=== PATIENT | female | born 1965 | race Caucasian/White ===

== ENCOUNTER 2017-01-29 09:37 | Emergency (ER) | payer OTHER ==
[~2017-01-29] VITALS: Ht 160 cm; Wt 109.1 kg
[~2017-01-29 09:37] MED LIST: ATOXIMETIN-B1 CAP PO; BACTRIM DS 8001 TAB PO; CELEBREX 200MG200 MG PO; CYCLOBENZAPRINE5 MG PO; EPA/GLA1 SGL PO; FOLIC ACID0.4 MG PO; GABAPENTIN PO; HUMALOG100 U/ML SC; INSULIN; INSULIN PUMP; LANTUS100 U/ML; LANTUS100 U/ML SC; LEVOTHYROXINE PO; LEVOXYL0.1 MG PO; LISINOPRIL1 POW; LISINOPRIL10 MG PO; LORTAB 5/500 501 TAB PO; MAREPA1200 MG PO; METRONIDAZOLE500 MG PO; MIDRIN PO; MOTRIN 800800 MG/TAB PO; NAPROSYN250 MG PO; NORCO 325 MG-51 TAB PO; NOVLOG SC; PERCOCET 325 MG1 TA2 PO; PHENERGAN 25 TA25 MG PO; PHENERGAN25 MG RC; PREMARIN 0.60.625 M1 PO; PREMARIN0.625 MG PO; REGLAN10 MG PO; REGLAN5 MG/ML PO; SEPTRA DS 8001 TAB PO; ZESTORETIC 12.51 TAB PO; ZITHROMAX 250M250 MG PO; ZOCOR 40MG40 MG PO; ZOCOR20 MG PO; [UNRECOGNIZED DRUG - OTHER]; b 12 ICA; calcium; lantus
[2017-01-29 09:41] VITALS: TEMP 98
[2017-01-29] MEDS ORDERED: NORCO 325 MG-7.1 TAB PO (11:09)
[2017-01-29 11:26] VITALS: BP 126/60; PULSE 87
== END 2017-01-29 11:28 | disposition home or self-care (01) ==
LOC: COL.ER 09:37
DX: S63.502A Unspecified sprain of left wrist, initial encounter (principal); S80.01XA Contusion of right knee, initial encounter; S00.81XA Abrasion of other part of head, initial encounter; M79.645 Pain in left finger(s); W01.198A Fall on same level from slipping, tripping and stumbling with subsequent striking against other object, initial encounter; Y92.531 Health care provider office as the place of occurrence of the external cause; E11.9 Type 2 diabetes mellitus without complications; Z79.4 Long term (current) use of insulin; I10 Essential (primary) hypertension; Z96.641 Presence of right artificial hip joint; M19.072 Primary osteoarthritis, left ankle and foot; M19.071 Primary osteoarthritis, right ankle and foot

== ENCOUNTER → 2017-02-01 | Outpatient (CLI) | payer OTHER ==
[~2017-02-01] MED LIST changes: +NORCO 325 MG-7.1 TAB PO
== END ==
LOC: MC.RAD 09:40
DX: Z12.31 Encounter for screening mammogram for malignant neoplasm of breast (principal)

== ENCOUNTER 2017-05-01 13:40 | Emergency (ER) | payer OTHER ==
[~2017-05-01] VITALS: Ht 160 cm; Wt 102.3 kg
[2017-05-01 13:41] VITALS: BP 124/58; TEMP 98.5
[2017-05-01 14:32] LABS: BASO # 0.1 (0.0-0.2); BASO % 1.1 % (0.0-2.0); EOS # 0.4 (0.0-0.7); EOS % 5.7 % (0-4.0); GRAN # 3.5 (1.4-6.5); GRAN % 54.3 % (42.2-75.2); HEMATOCRIT 38.9 % (37.0-47.0); HEMOGLOBIN 12.5 g/dl (12.5-16.0); LYMPH # 1.8 (1.2-3.4); LYMPH % 27.5 % (20.0-51.0); MEAN CELL VOLUME 88 fl (80.0-100.0); MEAN CORPUSCULAR HEMOGLOBIN 28 pg (27.0-31.0); MEAN CORPUSCULAR HGB CONC 32 g/dl (33.0-37.0); MEAN PLATELET VOLUME 12.2 fl (7.4-10.4); MONO # 0.7 (0.1-0.6); MONO % 11.1 % (1.7-9.3); PLATELET COUNT 200 K/mm3 (130-400); RED BLOOD COUNT 4.43 M/mm3 (4.10-5.30); REDCELL DISTRIBUTION WIDTH-CV 14.4 % (11.5-14.5); WHITE BLOOD COUNT 6.4 K/mm3 (4.8-10.8)
[2017-05-01 14:38] LABS: ADJUSTED CALCIUM 8.7 mg/dL (8.4-10.2); ALBUMIN 3.8 gm/dL (3.5-5.0); BILIRUBIN,TOTAL 1.3 mg/dL (0.0-1.0); CALCIUM 8.5 mg/dL (8.4-10.2); CREATININE, serum 0.72 mg/dL (0.52-1.25); POTASSIUM 4.1 mmol/L (3.4-5.0); TOTAL PROTEIN 7.1 gm/dL (6.4-8.2)
[2017-05-01 15:33] VITALS: PULSE 92
== END 2017-05-01 15:34 | disposition home or self-care (01) ==
LOC: COL.ER 13:40
PROVIDERS: Emergency Medicine
DX: E11.649 Type 2 diabetes mellitus with hypoglycemia without coma (principal); E11.40 Type 2 diabetes mellitus with diabetic neuropathy, unspecified; Z90.710 Acquired absence of both cervix and uterus; Z98.890 Other specified postprocedural states; Z79.4 Long term (current) use of insulin

== ENCOUNTER 2017-06-12 10:15 | Outpatient (RCR) | payer OTHER | END 2017-06-21 16:16 | LOC: WSOT 10:15 | DX: Z98.890 Other specified postprocedural states (principal) ==

== ENCOUNTER 2017-06-20 08:45 | Outpatient (RCR) | payer OTHER | END 2017-06-21 16:44 | LOC: WSPT 08:45 | DX: M54.5 Low back pain (principal) | CPT/HCPCS: G0283-GP ==

== ENCOUNTER → 2017-07-01 | Outpatient (CLI) | payer OTHER ==
[2017-07-01 10:54] LABS: PH 7 (5-8); URINE APPEARANCE Hazy; URINE BACTERIA Rare /hpf; URINE BILIRUBIN Negative (NEGATIVE); URINE BLOOD Negative (NEGATIVE); URINE COLOR Yellow; URINE GLUCOSE Negative (NEGATIVE); URINE KETONE Negative (NEGATIVE); URINE RBC None Seen /hpf; URINE UROBILINOGEN Negative (NEGATIVE); URINE WBC 0-2 /hpf
== END ==
LOC: COL.LAB 09:39
PROVIDERS: Anesthesiology Pain Medicine
DX: Z01.818 Encounter for other preprocedural examination (principal); R82.71 Bacteriuria

== ENCOUNTER 2017-11-04 09:15 | Outpatient (RCR) | payer OTHER ==
[2017-12-19] MEDS ORDERED: LANTUS100 U/ML SQ (14:46)
== END 2017-12-26 07:52 | disposition home or self-care (01) ==
LOC: WSOT 09:15
DX: G56.03 Carpal tunnel syndrome, bilateral upper limbs (principal); E10.42 Type 1 diabetes mellitus with diabetic polyneuropathy

== ENCOUNTER → 2017-12-23 | Outpatient (RCR) | payer OTHER ==
[~2017-12-23] MED LIST changes: +LANTUS100 U/ML SQ
== END | disposition home or self-care (01) ==
LOC: WSPT
DX: M19.91 Primary osteoarthritis, unspecified site (principal); M54.42 Lumbago with sciatica, left side; M54.41 Lumbago with sciatica, right side; G89.29 Other chronic pain

== ENCOUNTER 2018-01-10 09:30 | Outpatient (RCR) | payer OTHER | END 2018-01-18 08:09 | disposition home or self-care (01) | LOC: WSPT 09:30 | DX: G56.03 Carpal tunnel syndrome, bilateral upper limbs (principal); M15.0 Primary generalized (osteo)arthritis; M54.41 Lumbago with sciatica, right side; M54.42 Lumbago with sciatica, left side; G89.29 Other chronic pain ==

== ENCOUNTER → 2018-02-21 | Outpatient (CLI) | payer OTHER | LOC: MC.RAD 11:40 | DX: Z12.31 Encounter for screening mammogram for malignant neoplasm of breast (principal) ==

== ENCOUNTER → 2018-03-07 | Outpatient (CLI) | payer OTHER | LOC: COL.RAD 08:09 | DX: M51.37 Other intervertebral disc degeneration, lumbosacral region (principal); M51.36 Other intervertebral disc degeneration, lumbar region ==

== ENCOUNTER → 2018-03-18 | Outpatient (CLI) | payer OTHER | LOC: MHCPAIN 12:13 | DX: G89.29 Other chronic pain (principal); M47.817 Spondylosis without myelopathy or radiculopathy, lumbosacral region; M53.3 Sacrococcygeal disorders, not elsewhere classified | CPT/HCPCS: G0463 ==

== ENCOUNTER → 2018-04-02 | Outpatient (CLI) | payer OTHER | LOC: MHCPAIN 08:19 | DX: M47.817 Spondylosis without myelopathy or radiculopathy, lumbosacral region (principal); M46.96 Unspecified inflammatory spondylopathy, lumbar region | CPT/HCPCS: J1040; Q9967 ==

== ENCOUNTER 2018-04-11 08:45 | Outpatient (RCR) | payer OTHER | END 2018-04-14 08:09 | disposition home or self-care (01) | LOC: WSPT 08:45 | DX: M54.5 Low back pain (principal); G89.29 Other chronic pain ==

== ENCOUNTER → 2018-05-02 | Outpatient (CLI) | payer OTHER | LOC: MHCPAIN 09:54 | DX: G89.29 Other chronic pain (principal); M47.817 Spondylosis without myelopathy or radiculopathy, lumbosacral region; M53.3 Sacrococcygeal disorders, not elsewhere classified | CPT/HCPCS: G0463 ==

== ENCOUNTER → 2018-05-22 | Outpatient (CLI) | payer OTHER | LOC: MHCPAIN 09:36 | DX: M47.817 Spondylosis without myelopathy or radiculopathy, lumbosacral region (principal); M54.5 Low back pain ==

== ENCOUNTER → 2018-05-26 | Outpatient (CLI) | payer OTHER | LOC: MHCPAIN 10:18 | DX: G89.29 Other chronic pain (principal); M53.3 Sacrococcygeal disorders, not elsewhere classified; M47.817 Spondylosis without myelopathy or radiculopathy, lumbosacral region | CPT/HCPCS: G0463 ==

== ENCOUNTER 2018-07-01 05:53 | Day surgery (SDC) | payer OTHER ==
[~2018-07-01] VITALS: Ht 160 cm; Wt 101.9 kg
[2018-07-01 06:34] VITALS: BP 132/69; PULSE 102; TEMP 98.4
[2018-07-01] MEDS ORDERED: SYNTHROID0.112 MG/T PO (06:54)
[2018-07-01] MEDS ORDERED: PRILOSEC 20MG20 MG PO (06:54)
[2018-07-01] MEDS ORDERED: LASIX 20MG TABL20 MG PO (06:54)
[2018-07-01] MEDS ORDERED: PRINZIDE 12.5 M1 TAB PO (06:55)
[2018-07-01] MEDS ORDERED: ASPIRIN E.C. 8181 MG PO (06:55)
[2018-07-01] MEDS ORDERED: NEURONTIN600 MG/TAB PO (06:56)
[2018-07-01] MEDS ORDERED: ZOCOR 40MG40 MG PO (06:56)
[2018-07-01] MEDS ORDERED: STRESS FORMULA1 TA1 PO (06:57)
[2018-07-01] MEDS ORDERED: NATURAL E400 IU PO (06:57)
[2018-07-01] MEDS ORDERED: OMEGA-31 SGL PO (06:57)
[2018-07-01] MEDS ORDERED: NATURAL IRON65 MG PO (06:59)
[2018-07-01] MEDS ORDERED: AQUAPHOR HEALING41% TP (07:00)
[2018-07-01] MEDS ORDERED: ESTRACE0.5 MG PO (07:01)
[2018-07-01] MEDS ORDERED: NYSTATIN POWDER15 GM TOP (07:01)
[2018-07-01] MEDS ORDERED: NOVOLOG 100U100 U/M1 (07:13)
[2018-07-01 07:56] VITALS: BP 125/66; PULSE 88; TEMP 97.9
[2018-07-01 08:10] VITALS: BP 120/68; PULSE 81
[2018-07-01] MEDS ORDERED: NORCO 325 MG-7.1 TAB PO (08:12)
[2018-07-01] MEDS ORDERED: LEVAQUIN 5500 MG/TA1 PO (08:13)
[2018-07-01] MEDS ORDERED: PHENERGAN 25 TA25 MG PO (08:14)
[2018-07-01 08:45] VITALS: BP 107/56; PULSE 84
[2018-07-01 09:00] VITALS: BP 122/65; PULSE 90
== END 2018-07-01 10:29 | disposition home or self-care (01) ==
LOC: SDCO 05:53
DX: S92.351A Displaced fracture of fifth metatarsal bone, right foot, initial encounter for closed fracture (principal); J44.9 Chronic obstructive pulmonary disease, unspecified; E11.9 Type 2 diabetes mellitus without complications; E78.00 Pure hypercholesterolemia, unspecified; I10 Essential (primary) hypertension; G43.909 Migraine, unspecified, not intractable, without status migrainosus; M81.0 Age-related osteoporosis without current pathological fracture; M06.9 Rheumatoid arthritis, unspecified; G47.33 Obstructive sleep apnea (adult) (pediatric); M21.42 Flat foot [pes planus] (acquired), left foot; K21.9 Gastro-esophageal reflux disease without esophagitis; Z88.5 Allergy status to narcotic agent; Z88.0 Allergy status to penicillin; Z88.1 Allergy status to other antibiotic agents; Z79.4 Long term (current) use of insulin; Z96.651 Presence of right artificial knee joint; Z90.710 Acquired absence of both cervix and uterus; Z83.3 Family history of diabetes mellitus; Z82.61 Family history of arthritis
CPT/HCPCS: C1713; J0690; J2250; J2405; J2704; J2795; J3010; J7030

== ENCOUNTER 2018-08-20 17:07 | Observation (INO) | payer OTHER ==
[~2018-08-20] VITALS: Ht 160 cm; Wt 95.5 kg
[~2018-08-20 17:07] MED LIST changes: +AQUAPHOR HEALING41% TP; +ASPIRIN E.C. 8181 MG PO; +ESTRACE0.5 MG PO; +LASIX 20MG TABL20 MG PO; +LEVAQUIN 5500 MG/TA1 PO; +NATURAL E400 IU PO; +NATURAL IRON65 MG PO; +NEURONTIN600 MG/TAB PO; +NOVOLOG 100U100 U/M1; +NYSTATIN POWDER15 GM TOP; +OMEGA-31 SGL PO; +PRILOSEC 20MG20 MG PO; +PRINZIDE 12.5 M1 TAB PO; +STRESS FORMULA1 TA1 PO; +SYNTHROID0.112 MG/T PO
[2018-08-20 18:04] LABS: COLLECTION METHOD CLEAN CATCH
[2018-08-20 18:14] LABS: BASO # 0.1 (0.0-0.2); EOS # 0.4 (0.0-0.7); EOS % 3.2 % (0-4.0); GRAN # 6.8 (1.4-6.5); GRAN % 57.3 % (42.2-75.2); HEMATOCRIT 46.3 % (37.0-47.0); HEMOGLOBIN 14.8 g/dl (12.5-16.0); LYMPH # 3.4 (1.2-3.4); LYMPH % 28.4 % (20.0-51.0); MEAN CELL VOLUME 88 fl (80.0-100.0); MEAN CORPUSCULAR HEMOGLOBIN 28 pg (27.0-31.0); MEAN CORPUSCULAR HGB CONC 32 g/dl (33.0-37.0); MEAN PLATELET VOLUME 12.5 fl (7.4-10.4); MONO # 1.2 (0.1-0.6); MONO % 9.8 % (1.7-9.3); PLATELET COUNT 273 K/mm3 (130-400); RED BLOOD COUNT 5.27 M/mm3 (4.10-5.30)
[2018-08-20 18:21] LABS: MUCOUS Present /lpf; PH 7 (5-8); SQUAMOUS EPITHELIAL >50 /hpf; URINE APPEARANCE Clear; URINE BACTERIA Occasional /hpf; URINE BILIRUBIN Negative (NEGATIVE); URINE BLOOD Negative (NEGATIVE); URINE COLOR Amber; URINE GLUCOSE Negative (NEGATIVE); URINE KETONE Negative (NEGATIVE); URINE LEUKOCYTE ESTERASE Negative (NEGATIVE); URINE NITRATE Negative (NEGATIVE); URINE PROTEIN(semi-quant) Negative (NEGATIVE); URINE RBC 0-2 /hpf; URINE UROBILINOGEN Negative (NEGATIVE)
[2018-08-20 18:25] LABS: ALANINE AMINOTRANSFERASE 36 U/L (9-52); ALBUMIN 4.5 gm/dL (3.5-5.0); ALKALINE PHOSPHATASE 127 U/L (50-136); ANION GAP 5 mmol/L (7-16); AST,SGOT 23 U/L (15-37); BILIRUBIN,TOTAL 0.9 mg/dL (0.0-1.0); BLOOD UREA NITROGEN 17 mg/dL (7-17); C-REACTIVE PROTEIN 1.3 mg/dL (0.0-0.9); CALCIUM 9.1 mg/dL (8.4-10.2); CARBON DIOXIDE 34 mmol/L (22-30); CHLORIDE 102 mmol/L (98-107); CREATININE, serum 0.72 mg/dL (0.52-1.25); GLUCOSE 129 mg/dL (74-106); LIPASE 31 U/L (23-300); POTASSIUM 3.5 mmol/L (3.4-5.0); SODIUM 142 mmol/L (137-145); TOTAL PROTEIN 8.2 gm/dL (6.4-8.2)
[2018-08-20 18:30] LABS: ACETONE,SERUM NEGATIVE
[2018-08-20] MEDS ORDERED: PROAIR HFA0.09 MG/AC IH (23:01)
[2018-08-20] MEDS ORDERED: LIQUIFILM TEARS15 ML OU (23:02)
[2018-08-20] MEDS ORDERED: ARTIFICIAL TEA3.5 GM OP (23:04)
[2018-08-20] MEDS ORDERED: TESSALON P100 MG/CAP PO (23:05)
[2018-08-20] MEDS ORDERED: CALCIPOTRIENE0.005% TP (23:07)
[2018-08-20] MEDS ORDERED: OS-CAL 500 + D1 TAB PO (23:09)
[2018-08-20] MEDS ORDERED: CLARITIN D TAB1 TAB PO (23:09)
[2018-08-20] MEDS ORDERED: MASON NATURAL1200 MG PO (23:10)
[2018-08-20] MEDS ORDERED: FLEXERIL 1010 MG/TAB PO (23:11)
[2018-08-20] MEDS ORDERED: ESTRACE0.5 MG PO (23:16)
[2018-08-20] MEDS ORDERED: FLONASEALLERGY NS (23:19)
[2018-08-20] MEDS ORDERED: FLOVENT 110MCG7.9 GM IH (23:19)
[2018-08-20] MEDS ORDERED: NIZORAL CREAM15 GM TP (23:22)
[2018-08-20] MEDS ORDERED: LEVSIN0.125 M1 PO (23:23)
[2018-08-20] MEDS ORDERED: EMLA CREAM TOP (23:25)
[2018-08-20] MEDS ORDERED: LOTRIMIN AF133 GM TOP (23:27)
[2018-08-20] MEDS ORDERED: REGLAN 10MG10 MG/TAB PO (23:28)
[2018-08-20] MEDS ORDERED: MOBIC15 MG PO (23:29)
[2018-08-20] MEDS ORDERED: MULTIPLE VITAMI1 CAP PO (23:30)
[2018-08-20] MEDS ORDERED: NYAMYC100000 U/G TP (23:31)
[2018-08-20] MEDS ORDERED: BACTROBAN15 GM TOP (23:31)
[2018-08-20] MEDS ORDERED: PATANOL OPHTHALM5 ML OD (23:32)
[2018-08-20] MEDS ORDERED: ADIPEX-P37.5 MG PO (23:33)
[2018-08-20] MEDS ORDERED: DENAVIR1% TOP (23:33)
[2018-08-20] MEDS ORDERED: PHENERGAN25 MG RC (23:34)
[2018-08-20] MEDS ORDERED: REFRESH OPTIVE0.4 M1 OP (23:36)
[2018-08-20] MEDS ORDERED: IMITREX 25MG TA25 MG PO (23:37)
[2018-08-20] MEDS ORDERED: ULTRAM 50MG TAB50 MG PO (23:38)
[2018-08-20] MEDS ORDERED: TRIAMCINOLONE A15 G2 TP (23:40)
[2018-08-20] MEDS ORDERED: VTAMINC250TA PO (23:40)
[2018-08-20] MEDS ORDERED: VITAMINC250CH PO (23:42)
[2018-08-20] MEDS ORDERED: VITAMINC1000TA PO (23:42)
[2018-08-20] MEDS ORDERED: VITAMINE200 PO (23:43)
[2018-08-21 05:05] VITALS: BP 122/63; BP 91/43; PULSE 94; TEMP 97.3; TEMP 98
[2018-08-21 07:08] LABS: BASO # 0.1 (0.0-0.2); BASO % 0.9 % (0.0-2.0); EOS # 0.3 (0.0-0.7); EOS % 3.4 % (0-4.0); GRAN # 5.4 (1.4-6.5); GRAN % 59.7 % (42.2-75.2); HEMATOCRIT 41.7 % (37.0-47.0); HEMOGLOBIN 13.3 g/dl (12.5-16.0); LYMPH # 2.5 (1.2-3.4); LYMPH % 27.2 % (20.0-51.0); MEAN CELL VOLUME 89 fl (80.0-100.0); MEAN CORPUSCULAR HEMOGLOBIN 28 pg (27.0-31.0); MEAN CORPUSCULAR HGB CONC 32 g/dl (33.0-37.0); MEAN PLATELET VOLUME 12.4 fl (7.4-10.4); MONO # 0.8 (0.1-0.6); MONO % 8.5 % (1.7-9.3); PLATELET COUNT 218 K/mm3 (130-400)
[2018-08-21 08:03] VITALS: BP 116/63; PULSE 78; TEMP 97.4
[2018-08-21 12:14] VITALS: BP 131/68; PULSE 70; TEMP 97.8; TEMP 98.7
[2018-08-21 16:06] VITALS: BP 104/57; PULSE 83; TEMP 97.9
== END 2018-08-21 17:52 | disposition home or self-care (01) ==
LOC: COL.ER 17:07 → SURG 19:52
PROVIDERS: Emergency Medicine
DX: R10.9 Unspecified abdominal pain (principal); E11.9 Type 2 diabetes mellitus without complications; I10 Essential (primary) hypertension; E78.5 Hyperlipidemia, unspecified; Z96.651 Presence of right artificial knee joint; Z90.710 Acquired absence of both cervix and uterus; Z79.82 Long term (current) use of aspirin; Z79.4 Long term (current) use of insulin; Z88.5 Allergy status to narcotic agent; Z88.8 Allergy status to other drugs, medicaments and biological substances
CPT/HCPCS: J2405; J3010; J7030; Q9967

== ENCOUNTER → 2018-09-03 | Outpatient (CLI) | payer OTHER ==
[~2018-09-03] MED LIST changes: +ADIPEX-P37.5 MG PO; +ARTIFICIAL TEA3.5 GM OP; +BACTROBAN15 GM TOP; +CALCIPOTRIENE0.005% TP; +CLARITIN D TAB1 TAB PO; +DENAVIR1% TOP; +EMLA CREAM TOP; +FLEXERIL 1010 MG/TAB PO; +FLONASEALLERGY NS; +FLOVENT 110MCG7.9 GM IH; +IMITREX 25MG TA25 MG PO; +LEVSIN0.125 M1 PO; +LIQUIFILM TEARS15 ML OU; +LOTRIMIN AF133 GM TOP; +MASON NATURAL1200 MG PO; +MOBIC15 MG PO; +MULTIPLE VITAMI1 CAP PO; +NIZORAL CREAM15 GM TP; +NYAMYC100000 U/G TP; +OS-CAL 500 + D1 TAB PO; +PATANOL OPHTHALM5 ML OD; +PROAIR HFA0.09 MG/AC IH; +REFRESH OPTIVE0.4 M1 OP; +REGLAN 10MG10 MG/TAB PO; +TESSALON P100 MG/CAP PO; +TRIAMCINOLONE A15 G2 TP; +ULTRAM 50MG TAB50 MG PO; +VITAMINC1000TA PO; +VITAMINC250CH PO; +VITAMINE200 PO; +VTAMINC250TA PO
== END ==
LOC: COL.VAS 08:59
DX: Z13.6 Encounter for screening for cardiovascular disorders (principal); Z98.890 Other specified postprocedural states

== ENCOUNTER → 2018-09-15 | Outpatient (CLI) | payer OTHER | LOC: COL.RAD 09-12 07:30 | DX: K80.20 Calculus of gallbladder without cholecystitis without obstruction (principal); E27.9 Disorder of adrenal gland, unspecified | CPT/HCPCS: Q9967 ==

== ENCOUNTER 2018-09-30 07:33 | Day surgery (SDC) | payer OTHER ==
[~2018-09-30] VITALS: Ht 160 cm; Wt 102.2 kg
[2018-09-30 07:52] VITALS: BP 121/63; PULSE 88; TEMP 98.1
[2018-09-30 09:45] VITALS: BP 128/82; PULSE 79
[2018-09-30 10:00] VITALS: BP 126/71; PULSE 65
[2018-09-30 10:15] VITALS: BP 109/59; PULSE 75
[2018-09-30 10:30] VITALS: BP 125/73; PULSE 73
== END 2018-09-30 11:30 | disposition home or self-care (01) ==
LOC: SDCO 07:33
DX: Z12.11 Encounter for screening for malignant neoplasm of colon (principal); D12.4 Benign neoplasm of descending colon; D12.8 Benign neoplasm of rectum; E11.9 Type 2 diabetes mellitus without complications; I10 Essential (primary) hypertension; E78.5 Hyperlipidemia, unspecified; Z79.82 Long term (current) use of aspirin; Z79.4 Long term (current) use of insulin; Z88.5 Allergy status to narcotic agent; Z88.1 Allergy status to other antibiotic agents; Z88.8 Allergy status to other drugs, medicaments and biological substances
CPT/HCPCS: J2250; J2405; J3010

== ENCOUNTER 2018-10-03 08:30 | Outpatient (RCR) | payer OTHER | END 2018-11-23 | disposition home or self-care (01) | LOC: WSPT | DX: S92.351D Displaced fracture of fifth metatarsal bone, right foot, subsequent encounter for fracture with routine healing (principal); W10.8XXD Fall (on) (from) other stairs and steps, subsequent encounter ==

== ENCOUNTER → 2018-12-11 | Outpatient (CLI) | payer OTHER | LOC: COL.RAD 12-10 13:00 | DX: M79.671 Pain in right foot (principal) | CPT/HCPCS: J3301; Q9967 ==

== ENCOUNTER 2018-12-24 11:15 | Outpatient (RCR) | payer OTHER | END 2019-02-04 | disposition home or self-care (01) | LOC: WSPT | DX: M54.5 Low back pain (principal); M54.6 Pain in thoracic spine ==

== ENCOUNTER → 2018-12-29 | Outpatient (CLI) | payer OTHER | LOC: MHCPAIN 08:42 | DX: G89.29 Other chronic pain (principal); M47.817 Spondylosis without myelopathy or radiculopathy, lumbosacral region; M53.3 Sacrococcygeal disorders, not elsewhere classified; M79.2 Neuralgia and neuritis, unspecified | CPT/HCPCS: G0463 ==

== ENCOUNTER → 2019-05-04 | Outpatient (CLI) | payer OTHER | LOC: ZCOL.LAB 16:26 | DX: L02.221 Furuncle of abdominal wall (principal) ==

== ENCOUNTER 2019-07-16 10:00 | Outpatient (RCR) | payer OTHER | END 2019-10-08 | disposition home or self-care (01) | LOC: WSOT | DX: G56.01 Carpal tunnel syndrome, right upper limb (principal) ==

== ENCOUNTER 2019-12-30 16:35 | Emergency (ER) | payer OTHER ==
[~2019-12-30] VITALS: Ht 160 cm; Wt 104.5 kg
[2019-12-30 16:41] VITALS: BP 145/63; TEMP 98.9
[2019-12-30 17:25] LABS: BASO # 0.1 (0.0-0.2); BASO % 0.9 % (0.0-2.0); EOS # 0.4 (0.0-0.7); EOS % 3.5 % (0-4.0); GRAN # 6.7 (1.4-6.5); GRAN % 66.8 % (42.2-75.2); HEMATOCRIT 42.6 % (37.0-47.0); HEMOGLOBIN 13.6 g/dl (12.5-16.0); LYMPH # 2.1 (1.2-3.4); LYMPH % 20.8 % (20.0-51.0); MEAN CELL VOLUME 90 fl (80.0-100.0); MEAN CORPUSCULAR HEMOGLOBIN 29 pg (27.0-31.0); MEAN CORPUSCULAR HGB CONC 32 g/dl (33.0-37.0); MEAN PLATELET VOLUME 12.3 fl (7.4-10.4); MONO # 0.8 (0.1-0.6); MONO % 7.5 % (1.7-9.3); PLATELET COUNT 225 K/mm3 (130-400); RED BLOOD COUNT 4.74 M/mm3 (4.10-5.30); REDCELL DISTRIBUTION WIDTH-CV 13.3 % (11.5-14.5)
[2019-12-30 17:32] LABS: ACETONE,SERUM NEGATIVE
[2019-12-30 17:35] LABS: ALANINE AMINOTRANSFERASE 31 U/L (4-34); ALBUMIN 4.3 gm/dL (3.5-5.0); ALKALINE PHOSPHATASE 144 U/L (50-136); ANION GAP 13 mmol/L (7-16); AST,SGOT 25 U/L (15-37); BILIRUBIN,TOTAL 1.6 mg/dL (0.0-1.0); BLOOD UREA NITROGEN 25 mg/dL (7-17); CALCIUM 9.4 mg/dL (8.4-10.2); CARBON DIOXIDE 25 mmol/L (22-30); CHLORIDE 100 mmol/L (98-107); CREATININE, serum 0.81 (0.52-1.25); SODIUM 138 mmol/L (137-145); TOTAL PROTEIN 7.5 gm/dL (6.4-8.2)
[2019-12-30 17:37] LABS: GLUCOSE 474 mg/dL (74-106)
[2019-12-30 18:02] LABS: COLLECTION METHOD CLEAN CATCH
[2019-12-30 18:10] LABS: PH 6 (5-8); SQUAMOUS EPITHELIAL 0-2 /hpf; URINE APPEARANCE Clear; URINE BACTERIA None Seen /hpf; URINE BILIRUBIN Negative (NEGATIVE); URINE BLOOD Negative (NEGATIVE); URINE COLOR Straw; URINE GLUCOSE 3+ (NEGATIVE); URINE KETONE Negative (NEGATIVE); URINE LEUKOCYTE ESTERASE Negative (NEGATIVE); URINE NITRATE Negative (NEGATIVE); URINE PROTEIN(semi-quant) Negative (NEGATIVE); URINE RBC None Seen /hpf; URINE UROBILINOGEN Negative (NEGATIVE)
[2019-12-30 19:02] VITALS: PULSE 79
== END 2019-12-30 19:02 | disposition home or self-care (01) ==
LOC: COL.ER 16:35
PROVIDERS: Emergency Medicine
DX: E10.65 Type 1 diabetes mellitus with hyperglycemia (principal); I10 Essential (primary) hypertension; E78.5 Hyperlipidemia, unspecified; Z79.82 Long term (current) use of aspirin; Z96.652 Presence of left artificial knee joint
CPT/HCPCS: J1815; J7030

== ENCOUNTER 2020-03-28 11:00 | Outpatient (RCR) | payer OTHER | END 2020-03-29 | disposition home or self-care (01) | LOC: WSC | DX: M25.562 Pain in left knee (principal) ==

== ENCOUNTER 2020-04-07 09:00 | Outpatient (RCR) | payer OTHER | END 2020-04-08 15:04 | disposition home or self-care (01) | LOC: WSC 09:00 | DX: M25.562 Pain in left knee (principal) ==

== ENCOUNTER → 2020-04-25 | Outpatient (CLI) | payer OTHER | LOC: COL.RAD 08:15 | DX: M51.17 Intervertebral disc disorders with radiculopathy, lumbosacral region (principal); M47.27 Other spondylosis with radiculopathy, lumbosacral region ==

== ENCOUNTER 2020-05-31 09:00 | Outpatient (RCR) | payer OTHER | END 2020-06-07 11:13 | disposition home or self-care (01) | LOC: WSC 09:00 | DX: M54.5 Low back pain (principal); G89.29 Other chronic pain ==

== ENCOUNTER → 2020-06-30 | Outpatient (CLI) | payer OTHER | LOC: COL.RAD 10:18 | DX: M51.36 Other intervertebral disc degeneration, lumbar region (principal); M51.17 Intervertebral disc disorders with radiculopathy, lumbosacral region; M89.38 Hypertrophy of bone, other site ==

== ENCOUNTER → 2020-09-02 | Outpatient (CLI) | payer OTHER | LOC: COL.RAD 07:06 | DX: G31.9 Degenerative disease of nervous system, unspecified (principal) | CPT/HCPCS: A9585 ==

== ENCOUNTER → 2020-10-17 | Outpatient (RCR) | payer OTHER | END | disposition home or self-care (01) | LOC: WSPT → WSC 10-04 14:00 → WSPT 10-06 08:55 | DX: M79.622 Pain in left upper arm (principal); G89.29 Other chronic pain ==

== ENCOUNTER 2020-11-16 14:15 | Outpatient (RCR) | payer OTHER | END 2020-11-17 11:24 | disposition home or self-care (01) | LOC: WSPT 14:15 | DX: M79.622 Pain in left upper arm (principal); M54.5 Low back pain; G89.29 Other chronic pain ==

== ENCOUNTER 2020-12-14 10:15 | Outpatient (RCR) | payer OTHER | END 2021-02-28 | disposition still patient (30) | LOC: MKS.ESL.PT | DX: G62.9 Polyneuropathy, unspecified (principal) ==

== ENCOUNTER 2020-12-14 10:45 | Outpatient (RCR) | payer OTHER | END 2021-02-28 | disposition home or self-care (01) | LOC: MKS.ESL.PT | DX: G62.9 Polyneuropathy, unspecified (principal) ==

== ENCOUNTER 2021-12-07 14:15 | Outpatient (RCR) | payer OTHER | END 2021-12-11 | disposition home or self-care (01) | LOC: WSPT | DX: M51.26 Other intervertebral disc displacement, lumbar region (principal) ==

== ENCOUNTER 2021-12-17 22:11 | Emergency (ER) | payer OTHER ==
[~2021-12-17] VITALS: Ht 160 cm; Wt 107.7 kg
[2021-12-17 22:17] VITALS: TEMP 97.4
[2021-12-17] MEDS ORDERED: PERCOCET 325 MG1 TA2 PO (23:44)
[2021-12-18 00:02] VITALS: BP 165/117; PULSE 77
== END 2021-12-18 00:02 | disposition home or self-care (01) ==
LOC: COL.ER 22:11
DX: M25.512 Pain in left shoulder (principal); Z88.6 Allergy status to analgesic agent
CPT/HCPCS: J2550; J3010

== ENCOUNTER 2021-12-21 14:15 | Outpatient (RCR) | payer OTHER | END 2022-01-11 | disposition home or self-care (01) | LOC: WSPT | DX: M51.26 Other intervertebral disc displacement, lumbar region (principal) ==

== ENCOUNTER 2022-01-04 08:15 | Outpatient (RCR) | payer OTHER | END 2022-01-11 | disposition home or self-care (01) | LOC: WSPT | DX: M75.52 Bursitis of left shoulder (principal); M54.50 Low back pain, unspecified; G89.29 Other chronic pain ==

== ENCOUNTER 2022-02-08 09:00 | Outpatient (RCR) | payer OTHER | END 2022-02-10 | disposition home or self-care (01) | LOC: WSPT | DX: M75.52 Bursitis of left shoulder (principal) ==

== ENCOUNTER 2022-03-08 09:00 | Outpatient (RCR) | payer OTHER | END 2022-03-13 | disposition home or self-care (01) | LOC: WSPT | DX: M75.52 Bursitis of left shoulder (principal); M54.50 Low back pain, unspecified; G89.29 Other chronic pain ==

== ENCOUNTER 2022-04-10 07:43 | Outpatient (RCR) | payer OTHER | END 2022-04-12 | disposition home or self-care (01) | LOC: WSPT | DX: M25.561 Pain in right knee (principal) ==

== ENCOUNTER 2022-05-08 15:45 | Outpatient (RCR) | payer OTHER | END 2022-05-13 | disposition home or self-care (01) | LOC: WSPT | DX: M25.561 Pain in right knee (principal) ==

== ENCOUNTER → 2022-06-06 15:00 | Outpatient (RCR) | payer OTHER | END | disposition home or self-care (01) | LOC: WSPT 05-16 08:00 → WSC 05-30 12:45 → WSPT 15:00 | DX: M25.561 Pain in right knee (principal) ==

== ENCOUNTER 2022-10-30 08:30 | Outpatient (RCR) | payer SELFPAY | END 2022-11-13 | LOC: MKS.ESL.PT | DX: E11.42 Type 2 diabetes mellitus with diabetic polyneuropathy (principal) ==

== ENCOUNTER 2023-01-08 09:00 | Outpatient (RCR) | payer MEDICARE, OTHER | END 2023-01-11 | disposition home or self-care (01) | LOC: WSPT | DX: M48.02 Spinal stenosis, cervical region (principal) ==

== ENCOUNTER 2023-01-08 13:46 | Outpatient (RCR) | payer SELFPAY | END 2023-01-08 14:00 | LOC: MKS.ESL.PT 13:46 | DX: E11.42 Type 2 diabetes mellitus with diabetic polyneuropathy (principal); R20.0 Anesthesia of skin; R20.2 Paresthesia of skin; R29.6 Repeated falls ==

== ENCOUNTER 2023-01-08 14:02 | Outpatient (RCR) | payer OTHER | END 2023-01-08 14:03 | disposition home or self-care (01) | LOC: MKS.ESL.PT 14:02 | DX: E11.42 Type 2 diabetes mellitus with diabetic polyneuropathy (principal); R29.6 Repeated falls; R20.0 Anesthesia of skin; R20.2 Paresthesia of skin ==

== ENCOUNTER 2023-02-07 15:00 | Outpatient (RCR) | payer MEDICARE, OTHER | END 2023-02-10 | disposition home or self-care (01) | LOC: WSPT | DX: M48.02 Spinal stenosis, cervical region (principal) ==

== ENCOUNTER 2023-09-13 08:03 | Outpatient (RCR) | payer OTHER, MEDICARE | END 2023-10-13 | disposition home or self-care (01) | LOC: WSPT | DX: M47.22 Other spondylosis with radiculopathy, cervical region (principal); M48.02 Spinal stenosis, cervical region; Z98.1 Arthrodesis status ==

== ENCOUNTER 2023-10-10 10:15 | Outpatient (RCR) | payer OTHER, MEDICARE | END 2023-10-13 | disposition home or self-care (01) | LOC: WSOT | DX: M25.532 Pain in left wrist (principal); M79.645 Pain in left finger(s); G89.29 Other chronic pain ==

== ENCOUNTER 2023-10-22 10:30 | Outpatient (RCR) | payer OTHER, MEDICARE | END 2023-11-13 | disposition home or self-care (01) | LOC: WSOT | DX: M25.532 Pain in left wrist (principal); M79.645 Pain in left finger(s); G89.29 Other chronic pain; Z96.652 Presence of left artificial knee joint ==

== ENCOUNTER 2024-07-27 07:42 | Day surgery (SDC) | payer MEDICARE ==
[~2024-07-27] VITALS: Ht 160 cm; Wt 103.5 kg
[~2024-07-27 07:42] MED LIST changes: +LR 1,000 ML IV SCH; +Ondansetron 4 MG/2 ML VIAL IV PRN
[2024-07-27 08:59] VITALS: BP 118/71; PULSE 93; TEMP 96.9
[2024-07-27] MEDS ORDERED: Lidocaine PF 2% (20 MG/ML) 5 ML VIAL ONE (09:57)
--- NOTE | 2024-07-27 11:02 | NUR ---
Patient admitted to [facility] at 0838.. Admission assessments completed. Consent signed. 22G IV inserted into LAC on 3rd attempt. LR infusing without difficulty. Allergies, medications, and pharmacy confirmed. Blood sugar obtained. Pt has dexcom monitor and insulin pump on. Reports insulin pump is on hold. Pt oriented to room and call light, call light within reach. at bedside.
[2024-07-27] MEDS ORDERED: BAQSIMI3 MG NS (11:06)
[2024-07-27] MEDS ORDERED: ZYRTEC-D 5 MG-11 TER PO (11:07)
[2024-07-27] MEDS ORDERED: FLEXERIL 1010 MG/TAB PO (11:08)
[2024-07-27] MEDS ORDERED: CYMBALTA 60MG60 MG PO (11:08)
[2024-07-27] MEDS ORDERED: FERROUSAL325 MG PO (11:09)
[2024-07-27 11:15] VITALS: BP 120/62; PULSE 90
[2024-07-27] MEDS ORDERED: NORCO 325 MG-51 TAB PO (11:20)
[2024-07-27] MEDS ORDERED: LEVSIN0.125 M1 PO (11:21)
[2024-07-27] MEDS ORDERED: LANTUS100 U/ML SQ (11:22)
[2024-07-27] MEDS ORDERED: SYNTHROID0.125 MG/T PO (11:23)
[2024-07-27] MEDS ORDERED: SINGULAIR 110 MG/TAB PO (11:25)
[2024-07-27] MEDS ORDERED: NITROSTAT0.4 MG/TAB SL (11:26)
[2024-07-27] MEDS ORDERED: KLOR-CON 1010 MEQ PO (11:27)
[2024-07-27] MEDS ORDERED: ALDACTONE 25MG25 M1 PO (11:28)
[2024-07-27] MEDS ORDERED: CRESTOR20 MG PO (11:28)
[2024-07-27 11:30] VITALS: BP 118/71; PULSE 88
--- NOTE | 2024-07-27 11:31 | NUR ---
1115 PATIENT RETURNS TO [facility] VIA CART. PT AWAKE AND ALERT. RESPIRATIONS UNLABORED. AMBULATED TO RECLINER CHAIR WITH 2:1 SBA. PT DENIES NAUSEA OR ABDOMINAL PAIN. HOOKED UP TO MONITOR AND VS OBTAINED. CALL LIGHT AT SIDE AND PRESENT. 1120 PATIENT TOLERATING PEPSI AND CHOCOLATE PUDDING WITHOUT NAUSEA OR DIFFICULTY SWALLOWING. 1130 IN ROOM SPEAKING WITH PATIENT. 1140 D/C INSTRUCTIONS REVIEWED WITH PATIENT. PT VERBALIZED UNDERSTANDING AND A COPY OF INSTRUCTIONS PROVIDED IN D/C FOLDER. 1150 PATIENT DRESSES SELF. 1200 PATIENT DISCHARGED FROM UNIT VIA W/C TO A PERSONAL VEHICLE. PT LEFT HOSPITAL IN STABLE CONDITION.
[2024-07-27 11:45] VITALS: BP 114/90; PULSE 85
== END 2024-07-27 12:00 | disposition home or self-care (01) ==
LOC: SDCO 07:42
DX: Z12.11 Encounter for screening for malignant neoplasm of colon (principal); K64.0 First degree hemorrhoids; I10 Essential (primary) hypertension; K44.9 Diaphragmatic hernia without obstruction or gangrene; E10.43 Type 1 diabetes mellitus with diabetic autonomic (poly)neuropathy; K31.84 Gastroparesis; Z79.4 Long term (current) use of insulin; Z79.899 Other long term (current) drug therapy; Z96.41 Presence of insulin pump (external) (internal); E66.01 Morbid (severe) obesity due to excess calories; Z86.0101 Personal history of adenomatous and serrated colon polyps; Z68.41 Body mass index [BMI] 40.0-44.9, adult
CPT/HCPCS: J2704; J7120